=== PATIENT | male | born 1970 | race Caucasian/White ===

== ENCOUNTER → 2020-03-13 16:20 | Outpatient (CLI) | payer MEDICAID, SELFPAY ==
[2020-03-13 16:32] LABS: Basophils # 0.1 K/mm3 (0-0.2); Eosinophils # 0.3 K/mm3 (0.0-0.4); Eosinophils % 2.9 % (0.1-12.0); Hematocrit 37.8 % (42.0-52.0); Hemoglobin 12.9 g/dL (14.1-18.0); Lymphocytes # 2.4 K/mm3 (0.7-4.5); Lymphocytes % 28.8 % (10-50); Mean Corpuscular HGB Conc 34.1 g/dL (31.8-35.4); Mean Corpuscular Hemoglobin 33.4 pg (27.0-31.2); Mean Corpuscular Volume 97.9 fl (80-94); Mean Platelet Volume 9.2 fl (7.4-10.4); Monocytes # 0.4 K/mm3 (0.1-1.0); Monocytes % 4.1 % (1.7-9.3); Neutrophils # 5.4 K/mm3 (1.8-7.8); Neutrophils % 63.2 % (37.0-80.0); Platelet Count 203 K/mm3 (142-424); Red Blood Count 3.86 M/mm3 (4.60-6.20); Red Cell Distribution Width 14.7 % (11.5-17.5); White Blood Count 8.5 K/mm3 (4.8-10.8)
[2020-03-13 16:40] LABS: Chloride 101 mmol/L (98-107); Sodium 139 mmol/L (136-145)
[2020-03-13 16:41] LABS: Potassium 4.8 mmoL/L (3.5-5.1)
[2020-03-13 16:43] LABS: Alanine Aminotransferase 59 U/L (12-78); Albumin Level 4.6 g/dl (3.5-5.0); Albumin/Globulin Ratio 1.2 (1.1-1.8); Alkaline Phosphatase 71 U/L (38-126); Anion Gap 14.8 mEq/L (5-15); Aspartate Amino Transferase 177 U/L (17-59); Bilirubin,Total 0.6 mg/dl (0.2-1.3); Blood Urea Nitrogen 21 mg/dl (9-20); Carbon Dioxide 28 mmol/L (22.0-30.0); Cholesterol 272 mg/dl (140-200); Estimated Glomerular Filt Rate 40 ml/min (>60); GFR (African American) 49 ML/MIN (>60); Globulin 3.8 g/dL (1.3-3.2); Total Protein,Serum 8.4 g/dl (6.3-8.2); Triglycerides 345 mg/dl (30-150); VLDL Cholesterol 69 mg/dL (0-40)
[2020-03-13 16:44] LABS: Calcium 10.2 mg/dl (8.4-10.2); Chol/HDL Ratio 7.2 (1-3.5); Glucose 96 mg/dl (74-100); HDL Cholesterol 38 mg/dl (40-60)
[2020-03-13 16:55] LABS: Direct LDL Cholesterol 174.48 mg/dL (100-129)
[2020-03-13 17:01] LABS: 25-OH Vitamin D, Total 30.6 ng/mL (30-100)
[2020-03-13 17:02] LABS: Free T4 (Free Thyroxine) < 0.07 ng/dl (0.78-2.19)
== END ==
PROVIDERS: Visit Provider Emergency Medicine
DX: J44.9 Chronic obstructive pulmonary disease, unspecified (principal); E55.9 Vitamin D deficiency, unspecified
CPT/HCPCS: 80053; 80061; 82306; 84439; 84443; 85025

== ENCOUNTER 2020-03-26 09:13 | Outpatient (RCR) | payer MEDICAID, SELFPAY ==
--- NOTE | 2020-03-26 10:36 | HMH.PTOPEV ---
PT Outpatient Evaluation Rehab PT Outpatient Evaluation Start: 03/26/20 10:17 Freq: Status: Active Protocol: Document 03/26/20 10:23 PRASANTH (Rec: 03/26/20 10:36 PHORBARBIE [id number]) Electronically Signed By Addy Chilel, PT 03/26/20 10:23 Outpatient Therapy Subjective History Subjective History Pt is 50 yowm who presents with c/o sudden onset balance and gait disturbance beginning ~ 2-3 mos ago. Pt is somewhat of a poor historian and may have some form of underlying mental delay. He reports recently quitting smoking ~ 1- 2 wks ago with hx of COPD. He reports no other significant PMH, but other records indicate past substance abuse, decreased kidney function, peripheral neuropathy, and likely PAD with claudication. He states, My hands and arms and legs just draw up sometimes and I don't know why . Chief Complaint Other,Decreased Coordination Symptoms Relieved By Rest/Positioning Symptoms Aggravated By Walking Prior Functional Limitations None Current Functional Limitations Standing,Recreation Activity, Walking,Balance Symptom Description Activity Dependent Balance Eval Gait/Posture Asssessment General Gait Observation Wide Based Gait,Ataxic Gait Assistive Devices Straight Cane Level of Transfer Assist Independent Body Alignment Posture Rigid Rhomberg Feet Together/Eyes open/Stable Surface pass Feet Together/Eyes Closed/Stable Surface fail Feet Together/Eyes open/Unstable Surface fail Feet Together/Eyes Closed/Unstable fail Surface Dynamic Gait Index Test Protocol Gait Level Surface Mild Impairment Query Text: Instructions: Walk at your normal speed from here to the next kirsten (20'). Grading: Kirsten the lowest category that applies. Change in Gait Speed Mild Impairment Query Text: Instructions: Begin walking at your normal pace (for 5'), when I tell you go , walk as fast as you can (for 5'). When I tell you slow , walk as slowly as you can (for 5'). Grading: Kirsten the lowest category that applies. Gait with Horizontal Head Turns Moderate Impairment Query Text: Instructions: Begin walking
== END 2020-03-26 09:15 | disposition home or self-care (01) ==
LOC: PT 09:13
PROVIDERS: Visit Provider Emergency Medicine
DX: R26.9 Unspecified abnormalities of gait and mobility (principal)
CPT/HCPCS: 97163

== ENCOUNTER → 2020-04-01 14:37 | Outpatient (CLI) | payer MEDICAID, SELFPAY ==
[2020-04-01 15:10] VITALS: PULSE 80; PULSE 85
== END ==
PROVIDERS: PCP Emergency Medicine; Visit Provider Internal Medicine Pulmonary Disease
DX: R06.00 Dyspnea, unspecified (principal)
CPT/HCPCS: 94060; 94618; 94640; 94727; 94729

== ENCOUNTER → 2020-04-05 14:06 | Outpatient (CLI) | payer MEDICAID, SELFPAY ==
--- NOTE | 2020-04-05 14:22 | XR_ITS ---
PROCEDURE: XR CHEST 2V CLINICAL HISTORY: COPD COMPARISON: CR CXR1 CHEST-PORTABLE from 02/15/2016 FINDINGS: The cardiomediastinal silhouette and pulmonary vascularity are within normal limits. There is calcified granuloma in the left lower lobe. There is hyperinflation consistent with COPD. Minimal nodularity noted in the left lung base nonspecific. Stability may be confirmed with follow-up. No lobar consolidation or collapse. No acute bony findings. IMPRESSION: COPD, no acute finding. There is some nodularity noted in the left lung base possibly due to overlapping vascularity. Stability may be confirmed with follow-up Dictated by: Ed Fuentes MD 04/05/2020 16:38 Ed Fuentes MD in [place] 04/05/2020 16:38
[2020-04-05 14:49] LABS: Chloride 102 mmol/L (98-107)
[2020-04-05 14:50] LABS: Potassium 4.8 mmoL/L (3.5-5.1); Sodium 140 mmol/L (136-145)
[2020-04-05 14:52] LABS: Alanine Aminotransferase 33 U/L (12-78); Alkaline Phosphatase 68 U/L (38-126); Anion Gap 15.8 mEq/L (5-15); Aspartate Amino Transferase 72 U/L (17-59); Bilirubin,Total 0.6 mg/dl (0.2-1.3); Blood Urea Nitrogen 31 mg/dl (9-20); Carbon Dioxide 27 mmol/L (22.0-30.0); Estimated Glomerular Filt Rate 36 ml/min (>60); GFR (African American) 43 ML/MIN (>60)
[2020-04-05 14:53] LABS: Albumin Level 4.9 g/dl (3.5-5.0); Albumin/Globulin Ratio 1.1 (1.1-1.8); Calcium 10.1 mg/dl (8.4-10.2); Globulin 4.4 g/dL (1.3-3.2); Glucose 97 mg/dl (74-100); Total Protein,Serum 9.3 g/dl (6.3-8.2)
[2020-04-05 14:57] LABS: Hemoglobin A1C 5.2 % (4.0-6.0)
[2020-04-05 15:10] LABS: T4 (Thyroxine) 7.2 ug/dl (5.53-11.0)
[2020-04-05 16:57] LABS: Vitamin B12 456 pg/mL (239-931)
[2020-04-08 16:11] LABS: Albumin 4.4 g/dL (2.9-4.4); Alpha-1-Globulin 0.2 g/dL (0.0-0.4); Alpha-2-Globulin 1.2 g/dL (0.4-1.0); Protein, Total 8.7 g/dL (6.0-8.5)
[2020-04-11 11:11] LABS: Zinc 113 ug/dL (56-134)
[2020-04-17 13:48] LABS: AChR Binding Abs 0.07 nmol/L (0.00-0.24); AChR Blocking Abs 21 % (0-25); AChR Modulating Ab <12 % (0-20); Anti-Striation (muscle) Abs Negative (Neg:<1:40)
== END ==
PROVIDERS: Specialist; Visit Provider Emergency Medicine
DX: R42 Dizziness and giddiness (principal); E03.9 Hypothyroidism, unspecified; R74.0 Nonspecific elevation of levels of transaminase and lactic acid dehydrogenase [LDH]; G60.8 Other hereditary and idiopathic neuropathies; H51.20 Internuclear ophthalmoplegia, unspecified eye; R26.0 Ataxic gait; R26.9 Unspecified abnormalities of gait and mobility; R47.1 Dysarthria and anarthria; J44.9 Chronic obstructive pulmonary disease, unspecified; Z79.899 Other long term (current) drug therapy
CPT/HCPCS: 36415; 71046; 80053; 82525; 82607; 82746; 83036; 84155; 84165; 84238; 84436; 84443; 84630; 86255; 86334

== ENCOUNTER → 2020-04-08 10:32 | Outpatient (CLI) | payer MEDICAID, SELFPAY ==
--- NOTE | 2020-04-08 10:34 | CA_ITS ---
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 Laterality: Bilateral Study Quality: Good Indications: eval for peripheral vascular disease Risk Factors Smoking Doppler Spectral Velocity Analysis ECA (R) 52.00/10.00 cm/s ECA (L) 66.80/10.70 cm/s dICA (R) 61.50/31.00 cm/s dICA (L) 83.40/41.70 cm/s Ciaran (R) 65.20/33.10 cm/s Ciaran (L) 86.60/40.60 cm/s pICA (R) 65.20/26.70 cm/s pICA (L) 62.00/26.20 cm/s dCCA (R) 72.60/22.40 cm/s dCCA (L) 62.40/18.80 cm/s pCCA (R) 95.80/24.70 cm/s pCCA (L) 98.00/29.20 cm/s Vert (R) 24.40/10.30 cm/s Vert (L) 39.00/17.10 cm/s ICA/CCA 0.90 ICA/CCA 1.40 Findings Duplex evaluation demonstrates stenosis of the right proximal internal carotid artery <20%. Duplex evaluation demonstrates stenosis of the left proximal internal carotid artery <20%. Duplex evaluation demonstrates antegrade flow of the bilateral Vertebral Arteries. Conclusion Duplex evaluation demonstrates stenosis of the right proximal internal carotid artery <20%. Duplex evaluation demonstrates stenosis of the left proximal internal carotid artery <20%. Duplex evaluation demonstrates antegrade flow of the bilateral Vertebral Arteries. Electronically signed by : Ed Fuentes MD 04/09/2020 09:02:25
--- NOTE | 2020-04-08 10:40 | MR_ITS ---
PROCEDURE: MR HEAD/BRAIN WO CON CLINICAL INDICATION: vertigo Dizziness and blurred vision COMPARISON: No exams were available for comparison TECHNIQUE: Routine multiplanar multi echo sequences are performed without gadolinium enhancement. FINDINGS: No midline shift, mass effect, intracranial hemorrhage, or hydrocephalus is evident. There is mild generalized atrophy. Unremarkable T2 white matter signal intensity. There is mild prominence of the pre pontine CSF space which is symmetric. Asymmetric prominent CSF signal intensity is present in the right CP angle suggesting right-sided arachnoid cyst. This area of asymmetric CSF collection measures 2.2 by 1.6 cm. The 7th and 8th nerve complex has an unremarkable appearance No acute infarction. The hippocampal gyri and temporal horns are symmetric. The pituitary, optic chiasm, corpus callosum, and upper cervical cord have an unremarkable appearance. There is fluid in the left mastoid sinus. No paranasal sinus air-fluid levels evident. IMPRESSION: 1. Asymmetric CSF collection in the right CP angle suggesting an arachnoid cyst at 2.2 x 1.6 cm. Suggests confirmation with dedicated MRI of the CP angle without and with gadolinium enhancement in this patient with dizziness 2. Left mastoid effusion. 3. Otherwise negative MRI of the brain without contrast. Dictated by: Ed Fuentes MD 04/08/2020 15:41 Ed Fuentes MD in [place] 04/08/2020 15:41
== END ==
PROVIDERS: PCP Emergency Medicine; Visit Provider Specialist
DX: R42 Dizziness and giddiness (principal); R26.0 Ataxic gait; R26.9 Unspecified abnormalities of gait and mobility; G60.8 Other hereditary and idiopathic neuropathies; H51.20 Internuclear ophthalmoplegia, unspecified eye; R47.1 Dysarthria and anarthria; Z86.69 Personal history of other diseases of the nervous system and sense organs
CPT/HCPCS: 70551; 93880

== ENCOUNTER → 2020-04-26 10:56 | Outpatient (CLI) | payer MEDICAID, SELFPAY ==
--- NOTE | 2020-04-26 10:57 | MR_ITS ---
PROCEDURE: MR HEAD/BRAIN WO/W CON CLINICAL INDICATION: Evaluate CP angle mass on the right. Dizziness, follow-up abnormal brain MRI abnormal brain MRI without contrast Hx abnormal mri brain done 04/08/20. Questioned 1. Asymmetric CSF collection in the right CP angle suggesting an arachnoid cyst at 2.2 x 1.6 cm. Suggests confirmation with dedicated MRI of the CP angle without and with gadolinium enhancement in this patient with dizziness COMPARISON: MR MR HEAD/BRAIN WO CON from 04/08/2020 TECHNIQUE: Routine multiplanar multi echo sequences are performed without and with gadolinium enhancement. FINDINGS: No midline shift intracranial hemorrhage or acute infarction is evident. There is once again noted asymmetric CSF collection in the right CP angle. This does not demonstrate contrast enhancement. This area measures approximately 2 by 1.7 cm consistent with a arachnoid cyst. This is caudad to the 7th and 8th nerve complex. This is displacing some small vessels at the skull base. No enhancing lesions are evident. Small amount fluid is present in the left mastoid sinus. No other significant anomalies are evident. IMPRESSION: Right CP angle arachnoid cyst. Dictated by: Ed Fuentes MD 04/29/2020 10:14 Ed Fuentes MD in [place] 04/29/2020 10:14
== END ==
PROVIDERS: PCP Emergency Medicine; Visit Provider Specialist
DX: R90.89 Other abnormal findings on diagnostic imaging of central nervous system (principal); R42 Dizziness and giddiness; R26.9 Unspecified abnormalities of gait and mobility; N28.9 Disorder of kidney and ureter, unspecified
CPT/HCPCS: 70553; A9576

== ENCOUNTER 2020-05-11 17:00 | Inpatient (IN) | payer MEDICAID, SELFPAY ==
[2020-05-11] VITALS (13 sets, daily range): BP systolic 105–131; BP diastolic 57–79; PULSE 72–87; RESP 14–22; TEMP 35.4–36.5; O2SAT 92–99; BMI 20.9; BMI 21.1
[2020-05-11 17:43] LABS: Appearance,Urine SL CLOUDY (Clear); Bilirubin,Urine Negative (Negative); Blood, Urine TRACE-L (Negative); Color,Urine YELLOW (Yellow); Glucose,Urine (UA) Negative (Negative); Ketones,Urine Negative (Negative); Leukocyte Esterase,Urine 1+ (Negative); Microscopic, Urine URINE MICROSCOPIC (MICROSCOPIC); Nitrate,Urine POSITIVE (Negative); Protein,Urine TRACE (Negative); Specific Gravity, Urine >= 1.030 (1.005-1.030); Urobilinogen,Urine 0.2 EU/dl (0.2)
--- NOTE | 2020-05-11 17:44 | HMH.EDABDPAI ---
ED Disposition Clinical Impression: Hypercapnic respiratory failure Qualifiers: Chronicity: acute Qualified Code(s): J96.02 - Acute respiratory failure with hypercapnia UTI (urinary tract infection) Qualifiers: Urinary tract infection type: acute cystitis Hematuria presence: with hematuria Qualified Code(s): N30.01 - Acute cystitis with hematuria Disposition: Admitted As Inpatient Condition on Discharge: Serious Instructions: DI for Acute Abdomen Additional Instructions: Given hypercarbic respiratory failure with uncompensated acidosis patient has been initiated on BiPAP at 14/6 30% FiO2 and a backup rate of 20. No significant hypoxia minimal oxygen support. Patient has been dosed with IV corticosteroids. Urinary tract infection noted on UA with positive nitrates. Patient has been dosed with ertapenem. No signs of SIRS/sepsis. As such patient be admitted for further respiratory care with bronchodilators and will repeat VBG in a.m. to determine weaning. Referrals: Dexter Ryan MD [Primary Care Provider] - - Critical Care Critical Care Time: No Attestation: On 05/11/20, the high probability of a clinically significant, sudden or life threatening deterioration of the following system(s) required my full and direct attention, intervention and personal management. The time I documented below is in addition to time spent performing reported procedures but includes the following listed in this critical care notation. Medical Decision Making - Medical Records Medical records reviewed: Yes: I reviewed the patient's medical records. - [place] Inquiry Pt receiving controlled substance: No Vital Signs: 05/11/20 17:01 05/11/20 17:49 05/11/20 18:11 Temperature 95.8 F L Temperature Source Rectal Pulse Rate [Radial] 77 72 76 Respiratory Rate 18 16 18 Blood Pressure [Right Arm] 117/74 106/74 L 106/67 L Blood Pressure Mean [Right Arm] 88 84 80 Blood Pressure Source [Right Arm] Automatic Cuff Automatic Cuff Blood Pressure Position [Right Arm] Sitting Sitting Sitting 02 Sat by Pulse Oximetry 98 96 97 Oxygen Delivery Method Room Air Room Air Room Air 05/11/20 18:30 05/11/20 19:00 Temperature Temperature Source Pulse Rate [Radial] 80 73 Respiratory Rate 16 16 Blood Pressure [Right Arm] 105/57 L 106/66 L Blood Pressure Mean [Right Arm] 73 79 Blood Pressure Source [Right Arm] Automatic Cuff Automatic Cuff Blood Pressure Position [Right Arm] Sitting Sitting 02 Sat by Pulse Oximetry 92 L 96 Oxygen Delivery Method Room Air Room Air - Lab Data Lab results reviewed: Yes: I reviewed the patient's lab results. Lab Results 05/11/20 17:20: WBC 13.0 H, RBC 4.86, Hgb 15.5, Hct 47.8, MCV 98.3 H, MCH 31.9 H, MCHC 32.5, RDW 13.1, Plt Count 289, MPV 7.7, Neut % (Auto) 85.2 H, Lymph % (Auto) 8.3 L, [place] % (Auto) 5.7, Eos % (Auto) 0.3, Baso % (Auto) 0.5, Neut # (Auto) 11.0 H, Lymph # (Auto) 1.1, [place] # (Auto) 0.7, Eos # (Auto) 0.0, Baso # (Auto) 0.1, Total Counted 100, Neutrophils % (Manual) 90 H, Lymphocytes % (Manual) 5 L, Monocytes % (Manual) 5, Platelet Estimate Normal, RBC Morphology Normal 05/11/20 17:20: Sodium 141, Potassium 5.5 H, Chloride 101, Carbon Dioxide 30, Anion Gap 15.5 H, BUN 20, Creatinine 1.20, Estimated Creat Clear 71, Estimated GFR 64, Est GFR ( Amer) 78, Glucose 126 H, Calcium 10.0, Total Bilirubin 0.4, AST 34, ALT 23, Alkaline Phosphatase 124, Total Protein 8.8 H, Albumin 4.8, Globulin 4.0 H, Albumin/Globulin Ratio 1.2, Lipase 74 05/11/20 17:20: Lactate 2.0 05/11/20 17:20: Acetone Level None detected 05/11/20 17:20: Procalcitonin 0.192 05/11/20 17:20: SARS-CoV-2 IgG Ab (Rapid) Positive A, SARS-CoV-2 IgM Ab (Rapid) Negative 05/11/20 17:30: Urine Opiates Screen Negative, Urine Methadone Screen Negative, Ur Barbituates Screen Negative, Ur Phencyclidine Scrn Negative, Ur Amphetamines Screen Positive H, U Benzodiazepines Scrn Negative, Urine Cocaine Screen Negative, U Marijuana (THC) Screen Negative 05/11
[2020-05-11 17:47] LABS: Basophils # 0.1 K/mm3 (0-0.2); Basophils % 0.5 % (0.1-2.0); Eosinophils % 0.3 % (0.1-12.0); Hematocrit 47.8 % (42.0-52.0); Hemoglobin 15.5 g/dL (14.1-18.0); Lymphocytes # 1.1 K/mm3 (0.7-4.5); Lymphocytes % 8.3 % (10-50); Mean Corpuscular HGB Conc 32.5 g/dL (31.8-35.4); Mean Corpuscular Hemoglobin 31.9 pg (27.0-31.2); Mean Corpuscular Volume 98.3 fl (80-94); Mean Platelet Volume 7.7 fl (7.4-10.4); Monocytes # 0.7 K/mm3 (0.1-1.0); Monocytes % 5.7 % (1.7-9.3); Neutrophils % 85.2 % (37.0-80.0); Platelet Count 289 K/mm3 (142-424); Red Blood Count 4.86 M/mm3 (4.60-6.20); Red Cell Distribution Width 13.1 % (11.5-17.5)
[2020-05-11 17:49] LABS: MANUAL DIFFERENTIAL MANUAL DIFFERENTIAL (MANUAL DIFF)
[2020-05-11 17:50] LABS: VBG Base Excess -0.2 mmol/L (-2.4-2.3); VBG HCO3 28.5 mmol/L (23-30); VBG Oxygen Saturation 76.2 % (50-70); VBG PCO2 82.5 mmol/L (35-51); VBG PO2 48.7 mmol/L (28-40); VBG Total CO2 31.1 mmol/L (23-27)
[2020-05-11 17:51] LABS: VBG PH 7.16 mmol/L (7.31-7.41)
[2020-05-11 17:51] LABS: Acetone, Serum (Rapid) None Detected (None Detect)
[2020-05-11 17:53] LABS: Alanine Aminotransferase 23 U/L (12-78); Albumin Level 4.8 g/dl (3.5-5.0); Albumin/Globulin Ratio 1.2 (1.1-1.8); Alkaline Phosphatase 124 U/L (38-126); Anion Gap 15.5 mEq/L (5-15); Aspartate Amino Transferase 34 U/L (17-59); Bilirubin,Total 0.4 mg/dl (0.2-1.3); Blood Urea Nitrogen 20 mg/dl (9-20); Carbon Dioxide 30 mmol/L (22.0-30.0); Chloride 101 mmol/L (98-107); Creatinine Clearance Estimated 71 mL/min (50-200); Estimated Glomerular Filt Rate 64 ml/min (>60); GFR (African American) 78 ML/MIN (>60); Glucose 126 mg/dl (74-100); Lipase 74 U/L (23-300); Potassium 5.5 mmoL/L (3.5-5.1); Sodium 141 mmol/L (136-145); Total Protein,Serum 8.8 g/dl (6.3-8.2)
[2020-05-11 17:54] LABS: Bacteria,Urine 3+ /lpf; RBC,Urine Occasional #/hpf (0-3)
[2020-05-11 17:55] LABS: Barbiturates Screen,Urine Negative ng/ml (<200)
[2020-05-11 17:56] LABS: Amphetamine/Metha Screen,Urine Positive ng/ml (<1000); Benzodiazepines Screen,Urine Negative ng/ml (<200)
[2020-05-11 17:58] LABS: Cannabinoid Screen,Urine Negative ng/ml (<50); Cocaine Screen,Urine Negative ng/ml (<300)
[2020-05-11 17:59] LABS: Opiate Screen,Urine Negative ng/ml (<300)
[2020-05-11 18:00] LABS: Phencyclidine Screen,Urine Negative ng/ml (<25)
[2020-05-11 18:01] LABS: Lymphocytes % 5 % (10-50); Monocytes % 5 % (2-9); Neutrophils % 90 % (42-76); Platelet Estimate Normal; RBC Morphology Normal; Total Cells Counted 100
[2020-05-11 18:05] LABS: Methadone Screen,Urine Negative ng/ml (<300)
--- NOTE | 2020-05-11 18:05 | XR_ITS ---
PROCEDURE: XR CHEST PORTABLE Referring Doctor: Dexter London Patient Age:50Y CLINICAL HISTORY: Chest PAIN. Chest pain COPD Covid antibody detected COMPARISON: CR CXR1 CHEST-PORTABLE from 02/15/2016 CR XR CHEST 2V from 04/05/2020 FINDINGS: AP portable supine CXR was performed today The lungs appear mildly hyperexpanded but clear with nothing definitely acute.-no significant new findings stable chest No focal infiltrate or pneumonia. No pneumothorax nor pleural effusion.. The heart is normal size with normal pulmonary vascularity. 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 Chest wall unremarkable. Lungs without infiltrates, suspicious nodules, or pleural effusions. No acute bony abnormalities. IMPRESSION: Lungs clear with nothing definitely acute. Stable chest with no active disease Dictated by: Azael Ferrer MD 05/12/2020 18:52 Azael Ferrer MD in [place] 05/12/2020 18:52
--- NOTE | 2020-05-11 18:05 | CT_ITS ---
Procedure: CT ABDOMEN PELVIS WO CON Referring Doctor: Dexter London Patient Age:50Y CLINICAL INDICATION: ABD PAIN with nausea and vomiting Previous bladder surgery COMPARISON: No exams were available for comparison TECHNIQUE: No oral nor IV contrast. No Helical axial images obtained with sagittal and coronal reformats. All CT scans at the facility use one or more dose reduction, viz: automated exposure control, ma/kV adjustment per patient size (including targeted exams where dose is matched to indication, i.e. head), or iterative reconstruction technique. FINDINGS: Lower thorax: No acute finding ABDOMEN: Liver: No masses or biliary dilatation. Gallbladder: Nondistended. No radio opaque stones. Pancreas: No masses or peripancreatic fluid collections. Spleen: unremarkable Adrenals: unremarkable --- tract Kidneys/ureters: Multiple simple right renal cyst largest measuring up to 4.3 cm diameter Minor perinephric stranding most likely reflecting mild chronic changes PELVIS:. Urinary bladder: Circumferential bladder wall thickening.. . Mildly enlarged prostate measuring to 4.7 cm diameter with central calcification. . Left seminal vesicle is prominent than the right. Very nonspecific observation but may benefit correlation with PSA and prostate exam in follow-up GI tract Small slight hiatal hernia noted Stomach otherwise unremarkable. The moderate contents. . Small bowel appears satisfactory. No dilatation or evident wall thickening. Appendix is well visualized and normal. Large bowel-minimal stool throughout Small umbilical hernia contains only fat, no bowel loops. There is some minor stranding in the fat but no prominent inflammation. Small right inguinal contains only fat but no inflammation. No bowel loops. Peritoneum: No abnormal fluid collections. No obvious inflammatory changes. No free air. Lymph nodes: No enlarged lymph nodes apparent. Vasculature: No evidence of abdominal aortic aneurysm. No retroperitoneal hemorrhage evident. Bones: No acute fracture degenerative disc changes L5/S1 IMPRESSION: 1..Diffuse circumferential wall thickening of urinary bladder Warrants correlation with urinalysis. Could reflect a cystitis along with bladder wall hypertrophy changes Mild enlarged prostate & mild asymmetric prominence of left seminal vesicle noted-Nonspecific 2..Small fat containing right inguinal hernia. Small fat containing umbilical hernia. Small sliding hiatal hernia 3.. Simple benign-appearing right renal cysts. No additional imaging required. Dictated by: Azael Ferrer MD 05/12/2020 13:46 Azael Ferrer MD in [place] 05/12/2020 13:46
[2020-05-11 18:10] LABS: Procalcitonin 0.192 ng/mL (0.0-2.0)
--- NOTE | 2020-05-11 18:21 | ECG_ITS ---
APPROVED REPORT Exam: Resting ECG HR:82 bpm ECG Measurements Heart Rate 82 AXES QRSd 88 QRS 82 QT 400 T 58 QTc 467 Conclusion Accelerated Junctional rhythm Abnormal ECG Electronically signed by : Freeman Wei, 05/12/2020 08:44:28
[2020-05-11 18:27] LABS: Coronavirus 19 IgG Antibody Positive (Negative); Coronavirus 19 IgM Antibody Negative (Negative)
--- NOTE | 2020-05-11 19:29 | HMH.HP ---
*Admission Date: 05/11/20 *Chief complaint: nausea *History of present illness: 50-year-old male that presents with nausea and vomiting and epigastric pain that started last pm. Pt states Vomitus described as yellow bilious and numbering approximately 10 x today. Patient states pain is sharp and rated at 7 out of 10. Patient states No diarrhea, fever, chills,hematemesis. No known sick contacts. Patient while in ed was placed on bipap. Patient admitted for UTI and resp distress. [facility] History I have reviewed the patient's past medical history: Yes Medical History: Reports:: Asthma, Chronic Obstructive Pulmonary Disease (COPD), Depression *Have you ever received a pneumonia vaccine?: Yes *Have you received a flu vaccine this season?: Yes Other Medical History: Reports: Cataracts, Hypothyroidism, Thyroid Disease Other Surgeries: Yes: Hernia Repair, Ureter Stent Amputation: No Fractures: No - *Social History Smoking Status: Current every day smoker Tobacco Type: cigarettes # Packs/Day (cigarettes): 1 Alcohol Intake: never Alcohol Intake Frequency:: other Substance Use Type: denies use *Occupational Status:: disabled Housing: apartment Household Members: none *Travel in the last 8 weeks: None - Psychiatric History Pschychiatric History:: Reports:: Depression Family Hx:: Mental illness, Diabetes, Heart Attack, Hypertension, Kidney Disease Review of Systems - Constitutional Reports body ache(s), Reports fatigue, Denies fever(s) - Eyes Denies change in vision - ENT Denies bleeding gums, Denies sinus pressure - *Cardiovascular Denies chest pain at rest, Denies shortness of breath - *Respiratory Reports cough - *Gastrointestinal Reports nausea, Reports vomiting, Denies loose stools - *Genitourinary Denies difficulty urinating, Denies urinary frequency - *Musculoskeletal Reports muscle weakness, Denies abnormal walking - Integumentary/Breasts Denies rash - *Neurologic Denies dizziness - Psychiatric Denies abnormal sleep pattern - Endocrine Denies flushing - Hematologic/Lymphatic Denies enlarged lymph nodes - Allergic/Immunologic Denies itchy eyes Meds Home Medications Medication Instructions Recorded Confirmed Type Proventil HFA 90 mcg/actuation 2 puff INHALATION TID PRN #6.7 g NS 03/15/20 05/11/20 Rx aerosol inhaler albuterol sulfate 90 mcg/actuation 1 inh INHALATION QID PRN #6.7 g 04/12/20 05/11/20 Rx aerosol inhaler Escitalopram Oxalate 10 mg PO DAILY 04/29/20 05/11/20 History Fluticasone Propion/Salmeterol 1 inh INHALATION BID 04/29/20 05/11/20 History [Fluticasone-Salmeterol 100-50] Levothyroxine Sodium 200 mcg PO DAILY 04/29/20 05/11/20 History [Levothyroxine 200mcg (0.2mg) Tab] Nicotine [Nicoderm CQ] 1 patch TRANSDERMA DAILY 04/29/20 05/11/20 History Allergies Allergy/AdvReac Type Severity Reaction Status Date / Time hydroxyzine Allergy Severe S-DIFF. Verified 04/29/20 10:03 BREATHING iopamidol Allergy Unknown IV Verified 04/29/20 10:03 DYE-GETS SICK Exam Vital signs and Labs for Last 24 Hours: Temp Pulse Resp BP Pulse Ox 95.8 F L 74 16 127/76 99 05/11/20 17:01 05/11/20 19:14 05/11/20 19:14 05/11/20 19:14 05/11/20 19:14 Laboratory Results - last 24 hr 05/11/20 17:20: WBC 13.0 H, RBC 4.86, Hgb 15.5, Hct 47.8, MCV 98.3 H, MCH 31.9 H, MCHC 32.5, RDW 13.1, Plt Count 289, MPV 7.7, Neut % (Auto) 85.2 H, Lymph % (Auto) 8.3 L, [place] % (Auto) 5.7, Eos % (Auto) 0.3, Baso % (Auto) 0.5, Neut # (Auto) 11.0 H, Lymph # (Auto) 1.1, [place] # (Auto) 0.7, Eos # (Auto) 0.0, Baso # (Auto) 0.1, Total Counted 100, Neutrophils % (Manual) 90 H, Lymphocytes % (Manual) 5 L, Monocytes % (Manual) 5, Platelet Estimate Normal, RBC Morphology Normal 05/11/20 17:20: Sodium 141, Potassium 5.5 H, Chloride 101, Carbon Dioxide 30, Anion Gap 15.5 H, BUN 20, Creatinine 1.20, Estimated Creat Clear 71, Estimated GFR 64, Est GFR ( Amer) 78, Glucose 126 H, Calcium
--- NOTE | 2020-05-11 20:14 | PC.NURSE ---
PT ARRIVED TO THE FLOOR VIA STRETCHER FROM ED W/STAFF AT 2015
[2020-05-12] VITALS (13 sets, daily range): BP systolic 103–127; BP diastolic 63–84; PULSE 59–74; RESP 16–24; TEMP 36.3–37.1; O2SAT 94–98; BMI 21.6
--- NOTE | 2020-05-12 05:14 | PC.NURSE ---
Pt is alert and oriented x4. Pt rested well with eyes closed majority of shift. Tolerated Bipap well with no complaints. RA sat noted 98%. No c/o SOA. Bilateral lungs noted clear t/o upon auscultation. Active bowel sounds noted in all 4 quads. Remains NPO this shift. No c/o N/V/D. No c/o abdominal pain when asked. No edema noted. FC in place, 12 F coude. 50 ml out upon insertion. Pt states he does self caths at home Q4H. Urine output noted < 200 cc this sift. Denies abdominal discomfort with palpation. No distention noted. VSS. Remains safe. Call light within reach. Will continue to monitor. Spoke with family member at beginning of shift. She stated pt does have a hx of drug abuse with meth and ice. Most recent use was about 3 months ago that she is aware of.
[2020-05-12 07:19] LABS: Chloride 104 mmol/L (98-107); Potassium 5.7 mmoL/L (3.5-5.1); Sodium 139 mmol/L (136-145)
[2020-05-12 07:20] LABS: Basophils % 0.1 % (0.1-2.0); Eosinophils % 0.2 % (0.1-12.0); Hematocrit 41.6 % (42.0-52.0); Lymphocytes # 0.7 K/mm3 (0.7-4.5); Lymphocytes % 10.6 % (10-50); Mean Corpuscular HGB Conc 33.1 g/dL (31.8-35.4); Mean Corpuscular Hemoglobin 31.6 pg (27.0-31.2); Mean Corpuscular Volume 95.4 fl (80-94); Mean Platelet Volume 7.8 fl (7.4-10.4); Monocytes # 0.2 K/mm3 (0.1-1.0); Monocytes % 2.7 % (1.7-9.3); Neutrophils # 5.8 K/mm3 (1.8-7.8); Neutrophils % 86.4 % (37.0-80.0); Platelet Count 255 K/mm3 (142-424); Red Blood Count 4.36 M/mm3 (4.60-6.20); Red Cell Distribution Width 12.8 % (11.5-17.5); White Blood Count 6.7 K/mm3 (4.8-10.8)
[2020-05-12 07:21] LABS: Hemoglobin 13.7 g/dL (14.1-18.0)
[2020-05-12 07:22] LABS: Anion Gap 13.7 mEq/L (5-15); Blood Urea Nitrogen 26 mg/dl (9-20); Carbon Dioxide 27 mmol/L (22.0-30.0); Creatinine Clearance Estimated 67 mL/min (50-200); Estimated Glomerular Filt Rate 58 ml/min (>60); GFR (African American) 71 ML/MIN (>60); MANUAL DIFFERENTIAL MANUAL DIFFERENTIAL (MANUAL DIFF)
[2020-05-12 07:23] LABS: Glucose 112 mg/dl (74-100)
[2020-05-12 07:27] LABS: Lymphocytes % 5 % (10-50); Neutrophils % 92 % (42-76); Platelet Estimate Normal; RBC Morphology Normal; Total Cells Counted 100
[2020-05-12 07:28] LABS: Calcium 8.7 mg/dl (8.4-10.2)
--- NOTE | 2020-05-12 08:04 | HMH.PHAVTE ---
[facility] Pharmacy VTE Monitoring - Patient Demographics Admission date: 05/11/20 Report Date: 05/12/20 Time: 08:04 Allergies/Adverse Reactions: Patient Allergies hydroxyzine Allergy (Severe, Verified 04/29/20 10:03) S-DIFF. BREATHING iopamidol Allergy (Unknown, Verified 04/29/20 10:03) IV DYE-GETS SICK Height: 1.8 m Weight: 70.052 kg Patient Problems: Current Active Problems Hypercapnic respiratory failure (Acute) UTI (urinary tract infection) (Acute) COPD (chronic obstructive pulmonary disease) (Acute) - VTE Risk Labs: VTE Related Lab Results Hgb 13.7 g/dL (14.1-18.0) L D 05/12/20 06:53 Hct 41.6 % (42.0-52.0) L 05/12/20 06:53 Plt Count 255 K/mm3 (142-424) 05/12/20 06:53 BUN 26 mg/dl (9-20) H D 05/12/20 06:53 Creatinine 1.30 mg/dl (0.66-1.25) H 05/12/20 06:53 Estimated Creat Clear 67 mL/min (50-200) 05/12/20 06:53 Was VTE Risk Assessment Performed: Yes VTE Score: 3 VTE Risk Level: Low Risk - Prophylaxis VTE Prophylaxis Ordered?: Yes Types of VTE Prophylaxis: TEDS Knee High Location of Applied Device: Bilateral Lower Extremeties
--- NOTE | 2020-05-12 08:07 | HMH.PHAINT ---
MEDICATION RECONCILIATION COMPLETED ON PATIENT USING EXTERNAL FILL HISTORY FROM PHARMACY. -LAURITA LOPEZ, [facility]ICOD
--- NOTE | 2020-05-12 09:11 | HMH.ACPN2 ---
Internal Medicine - PN: Subj *Date: 05/13/20 *Time: 07:50 Interval history: doing better - more alert still on bpap Exam Vital signs and Labs for Last 24 Hours: Temp Pulse Resp BP Pulse Ox 97.7 F 62 24 121/80 98 05/12/20 04:00 05/12/20 06:29 05/12/20 04:00 05/12/20 04:00 05/12/20 04:00 Laboratory Results - last 24 hr 05/11/20 17:20: WBC 13.0 H, RBC 4.86, Hgb 15.5, Hct 47.8, MCV 98.3 H, MCH 31.9 H, MCHC 32.5, RDW 13.1, Plt Count 289, MPV 7.7, Neut % (Auto) 85.2 H, Lymph % (Auto) 8.3 L, [place] % (Auto) 5.7, Eos % (Auto) 0.3, Baso % (Auto) 0.5, Neut # (Auto) 11.0 H, Lymph # (Auto) 1.1, [place] # (Auto) 0.7, Eos # (Auto) 0.0, Baso # (Auto) 0.1, Total Counted 100, Neutrophils % (Manual) 90 H, Lymphocytes % (Manual) 5 L, Monocytes % (Manual) 5, Platelet Estimate Normal, RBC Morphology Normal 05/11/20 17:20: Sodium 141, Potassium 5.5 H, Chloride 101, Carbon Dioxide 30, Anion Gap 15.5 H, BUN 20, Creatinine 1.20, Estimated Creat Clear 71, Estimated GFR 64, Est GFR ( Amer) 78, Glucose 126 H, Calcium 10.0, Total Bilirubin 0.4, AST 34, ALT 23, Alkaline Phosphatase 124, Total Protein 8.8 H, Albumin 4.8, Globulin 4.0 H, Albumin/Globulin Ratio 1.2, Lipase 74 05/11/20 17:20: Lactate 2.0 05/11/20 17:20: Acetone Level None detected 05/11/20 17:20: Procalcitonin 0.192 05/11/20 17:20: SARS-CoV-2 IgG Ab (Rapid) Positive A, SARS-CoV-2 IgM Ab (Rapid) Negative 05/11/20 17:30: Urine Opiates Screen Negative, Urine Methadone Screen Negative, Ur Barbituates Screen Negative, Ur Phencyclidine Scrn Negative, Ur Amphetamines Screen Positive H, U Benzodiazepines Scrn Negative, Urine Cocaine Screen Negative, U Marijuana (THC) Screen Negative 05/11/20 17:30: Urine Color Yellow, Urine Appearance Sl cloudy, Urine pH 6.0, Ur Specific [place] >= 1.030, Urine Protein Trace, Urine Glucose (UA) Negative, Urine Ketones Negative, Urine Blood Trace-l, Urine Nitrate Positive, Urine Bilirubin Negative, Urine Urobilinogen 0.2, Ur Leukocyte Esterase 1+ A, Urine RBC Occasional, Urine WBC 10-20, Ur Squamous Epith Cells 10-20, Urine Bacteria 3+ 05/11/20 17:49: VBG pH 7.16 L, VBG pCO2 82.5 H, VBG pO2 48.7 H, VBG HCO3 28.5, VBG Total CO2 31.1 H, VBG O2 Saturation 76.2 H, VBG Base Excess -0.2 05/12/20 06:53: WBC 6.7 D, RBC 4.36 L, Hgb 13.7 L D, Hct 41.6 L, MCV 95.4 H, MCH 31.6 H, MCHC 33.1, RDW 12.8, Plt Count 255, MPV 7.8, Neut % (Auto) 86.4 H, Lymph % (Auto) 10.6, [place] % (Auto) 2.7, Eos % (Auto) 0.2, Baso % (Auto) 0.1, Neut # (Auto) 5.8, Lymph # (Auto) 0.7, [place] # (Auto) 0.2, Eos # (Auto) 0.0, Baso # (Auto) 0.0, Total Counted 100, Neutrophils % (Manual) 92 H, Band Neutrophils % 3.0, Lymphocytes % (Manual) 5 L, Platelet Estimate Normal, RBC Morphology Normal 05/12/20 06:53: Sodium 139, Potassium 5.7 H, Chloride 104, Carbon Dioxide 27, Anion Gap 13.7, BUN 26 H D, Creatinine 1.30 H, Estimated Creat Clear 67, Estimated GFR 58 L, Est GFR ( Amer) 71, Glucose 112 H, Calcium 8.7 D 05/12/20 08:32: Specimen Source Left radial, O2 % 21%, ABG pH 7.33 L, ABG pCO2 43.7, ABG pO2 67.6 L, ABG HCO3 22.5, ABG Total CO2 23.9, ABG O2 Saturation 93, ABG Base Excess -3.4 L, Ed Test Acceptable I & O for Last 24 hours: Intake & Output 05/09/20 05/10/20 05/11/20 05/12/20 11:59 11:59 11:59 11:59 Intake Total 2160 / 2160 Output Total 50 / 50 Balance 2109 / 2109 Weight 154 lb 7 oz Microbiology Reports for the Last 24 Hours: Microbiology 05/11/20 17:30 Urine,Catheterized Urine Culture - Preliminary - Constitutional no acute distress - *Routine HEENT Exam Head: Present: normocephalic Eye: Present: EOMI, PERRL ENT: Present: mucous membranes dry - *Routine Neck Exam Present: supple - *Routine Respiratory Exam Present: decreased breath sounds, other (bpap) - *Routine Cardiovascular Exam Present: RRR - *Routine Abdominal Exam Present: soft - *Routine Extremities Exam Absent: calf tenderness - *Routine Skin Exam Present: intact - *Routine Neurolog
--- NOTE | 2020-05-12 17:42 | PC.NURSE ---
PATIENT A&O4, LUNGS DIMINISHED, PULSES EQUAL, PATIENT HAS HAD NO EPISODES OF VOMITING, NAUSEA OR DIARRHEA. PATIENT ATE A CLEAR LIQUID DIET AND TOLERATED WELL. PATIENT IS NOW ON VAPOTHERM AND TOLERATING WELL. NO NEW ISSUES AT THIS TIME.
[2020-05-13] VITALS (14 sets, daily range): BP systolic 98–117; BP diastolic 52–65; PULSE 56–89; RESP 15–20; TEMP 36.5–37.6; O2SAT 90–97; BMI 21.2
--- NOTE | 2020-05-13 06:16 | PC.NURSE ---
Pt is alert and oriented x4. Pt rested well with eyes closed this shift. No acute changes noted from previous shift. Pt tolerated vapotherm on 20 L well with no c/o SOA. HOB remained elevated while lying in bed. Have encouraged pt to get OOB this am for breakfast. Bilateral lungs noted diminished t/o upon auscultation. No BM noted. Adequate urine output noted per FC. Clear and bright yellow urine noted. No edema noted. Denies N/V. Denies abd pain. VSS. Remains safe. Call light within reach. Will continue to monitor.
--- NOTE | 2020-05-13 08:55 | HMH.ACPN2 ---
Internal Medicine - PN: Subj *Date: 05/13/20 *Time: 08:55 Interval history: pt sitting up in chair with vapertherm, states he wants something else to eat Exam Vital signs and Labs for Last 24 Hours: Temp Pulse Resp BP Pulse Ox 97.7 F 58 L 16 108/60 L 95 05/13/20 03:58 05/13/20 06:06 05/13/20 03:58 05/13/20 03:58 05/13/20 06:06 Laboratory Results - last 24 hr 05/12/20 08:32: ABG pH 7.33 L, ABG pCO2 43.7, ABG pO2 67.6 L, ABG HCO3 22.5, ABG Total CO2 23.9, ABG O2 Saturation 93, ABG Base Excess -3.4 L I & O for Last 24 hours: Intake & Output 05/10/20 05/11/20 05/12/20 05/13/20 11:59 11:59 11:59 11:59 Intake Total 2160 / 2160 50 / 50 Output Total 50 / 50 2400 / 2400 Balance 2110 / 2110 -2350 / -2350 Weight 154 lb 7 oz 151 lb 7 oz Microbiology Reports for the Last 24 Hours: Microbiology 05/11/20 17:30 Urine,Catheterized Urine Culture - Preliminary - Constitutional no acute distress - *Routine HEENT Exam Head: Present: normocephalic Eye: Present: PERRL ENT: Present: mucous membranes moist - *Routine Neck Exam Present: supple. Absent: lymphadenopathy - *Routine Respiratory Exam Present: rhonchi, wheezes - *Routine Cardiovascular Exam Present: RRR - *Routine Abdominal Exam Present: soft, normoactive bowel sounds. Absent: tenderness - *Routine Extremities Exam Present: normal capillary refill. Absent: cyanosis, clubbing, edema - *Routine Skin Exam Present: warm. Absent: rash - *Routine Neurological Exam Present: alert, oriented X3 - Routine Psychiatric Exam Present: normal affect Assessment and Plan (1) Hypercapnic respiratory failure Status: Acute Qualifiers: Chronicity: acute Qualified Code(s): J96.02 - Acute respiratory failure with hypercapnia Category: Medical Code(s): J96.92 - Respiratory failure, unspecified with hypercapnia (2) UTI (urinary tract infection) Status: Acute Qualifiers: Urinary tract infection type: acute cystitis Hematuria presence: with hematuria Qualified Code(s): N30.01 - Acute cystitis with hematuria Category: Medical Code(s): N39.0 - Urinary tract infection, site not specified (3) COPD (chronic obstructive pulmonary disease) Status: Acute Qualifiers: COPD type: chronic bronchitis Chronic bronchitis type: mucopurulent Qualified Code(s): J41.1 - Mucopurulent chronic bronchitis Category: Medical Code(s): J44.9 - Chronic obstructive pulmonary disease, unspecified (4) Renal insufficiency Status: Acute Category: Medical Code(s): N28.9 - Disorder of kidney and ureter, unspecified (5) Hypothyroidism (acquired) Status: Acute Category: Medical Code(s): E03.9 - Hypothyroidism, unspecified (6) COVID-19 virus IgG antibody detected Status: Acute Category: Medical Code(s): Z01.84 - Encounter for antibody response examination (7) Hyperkalemia Status: Acute Category: Medical Code(s): E87.5 - Hyperkalemia (8) Amphetamine abuse Status: Acute Category: Medical Code(s): F15.10 - Other stimulant abuse, uncomplicated (9) COPD (chronic obstructive pulmonary disease) with acute bronchitis Status: Acute Category: Medical Code(s): J44.0 - Chronic obstructive pulmonary disease with (acute) lower respiratory infection; J20.9 - Acute bronchitis, unspecified (10) Severe sepsis with acute organ dysfunction Status: Acute Category: Medical Code(s): A41.9 - Sepsis, unspecified organism; R65.20 - Severe sepsis without septic shock - Assessment and plan all Dx Assessment and Plan for all problems:: rounded with dr dior all orders per aram try to wean vapertherm. advance diet
--- NOTE | 2020-05-13 11:21 | HMH.OTEV ---
OT Inpatient Evaluation Rehab OT IP Evaluation Start: 05/13/20 10:09 Freq: ONCE Status: Complete Protocol: Document 05/13/20 11:10 ESPINOZA (Rec: 05/13/20 11:20 [id number] Rehab OT IP Assessment Subjective History Pt is a 50 year old male who was admitted on 05/11/20 due to nausea, vomiting, and epigastric pain. Pt has a past medical history of asthma , COPD, asthma. Pt reports he lived at home alone prior to being hosptialized. Pt claims he was independent with ADL's and IADL's prior to becoming ill. Pt also reports he ambulated independently with a walker at home. Subjective I feel better today. Pt was resting in chair on arrival. Pt stood from chair with CGA. Pt then engaged in funtional mobility task of ~30 feet with cga. Pt sat down on toilet with cga. Pt stood from toilet with the assist of grab bars with cga. Pt returned back to chair with cga. Pt was independent with lower body dressing. Pt was left sitting in chair with call lindsey and all other needs in reach. Objective Patient Orientation Person,Place,Birthday Upper Extremity Gross ROM WFL Transfer Training Sit/Stand Transfer Assist Level Contact Guard/Hand Hold Chair Transfer Ability Contact Guard/Hand Hold Chair Transfer Technique Sit to/from Ambulatory Chair Transfer Assistive Devices Rolling Walker Lower Body Dressing Ability Standby Assistance Overall Commode/Toilet Transfer Ability Standby Assistance Commode/Toilet Transfer Technique Sit to/from Ambulatory Rehab OT IP prob,goals,plan Problems Date of Evaluation: 05/13/20 Rehab Potential Rehab Potential Innapropriate for Skilled Therapy Discharge Plan OT Discharge Plan Pt appears to be at baseline functionally. Pt is safe to return home once medically stable. Eval Complexity Eval Charge Codes 09562 - Low Complexity G Codes G -code Required
--- NOTE | 2020-05-13 11:22 | HMH.PTEV ---
Physical Therapy Evaluation Rehab PT IP Evaluation Start: 05/13/20 10:09 Freq: .once Status: Active Protocol: Document 05/13/20 11:20 JESSICA (Rec: 05/13/20 11:22 JESSICA [id number]) Subjective/History History History THis is the initial IP PT evalaution for Nic Gregorio. Pt is a 50 y/o male admitted to [facility] for UTI. Pt lives at [facility] and was I w/ ADL prior to admission Subjective Subjective No complaints from pt Rehab PT IP Eval Objective Appearance Patient Behavior Appropriate Patient Orientation Person,Place,Time Difficulty following instructions none Speech Pattern Appropriate Ambulation Patient Able to Ambulate Yes Ambulation Observation IP General Gait Pattern Observation Wide Based Gait,Ataxic Gait Ambulation Distance (feet) 50 Ambulation Assistive Device None Ambulation Ability Supervision/Stand by Balance Ability to Arise Able, uses arms to help Sitting Balance Steady, safe Standing Balance Steady, wide stance Dynamic Sitting Balance Ability Good Dynamic Standing Balance Ability Fair Transfers Chair Transfer Ability Supervision/Stand by Sit to Stand Chair Transfer Ability Supervision/Stand by Rehab PT IP prob,goals,plan Problems Date of Evaluation: 05/13/20 PT IP Problems Safety Rehab Potential Rehab Potential Innapropriate for Skilled Therapy Equipment Needs Assistive Devices Straight Cane,Rolling / Wheeled Walker Discharge Plan PT Discharge Plan Pt to ks home once medically stable - skilled IP therapy not needed at this time G -code Required Yes Eval Complexity Eval Charge Codes 10083 - Low Complexity G Codes PT Current Status Mobility PT Current Status Modifier CJ-At least 20% but less than 40% impaired, limited or restricted PT Goal Status Mobility PT Goal Status Modifer CJ-At least 20% but less than 40% impaired, limited or restricted PHYSICIAN CERTIFICATION: I certify the specified therapy services for Nic Gregorio are required, authorized, and reviewed every 30 days.
--- NOTE | 2020-05-13 16:54 | PC.NURSE ---
Pt has been pleasant and cooperative this shift. A&O X4. Pt has complained of pain X1 and received Tylenol per MAR with favorable results. Lung sounds reveal scattered expiratory wheezing. Pt is currently on room air with sats. >90%. No edema noted. Skin is C/D/I. Pt ambulates with stand-by assistance throughout the room and sat up in the recliner for several hours this shift. F/C is patent and draining clear, dark, danilo-colored urine at bedside to gravity. F/C tubing is free from kinks. No BM this shift. Appetite is excellent and pt eats the majority of all meals. 20 G peripheral IV in the RT forearm is patent and SL. VSS. Call light within reach. Will continue to monitor.
[2020-05-14 00:40] VITALS: PULSE 58; PULSE 71
[2020-05-14 03:57] VITALS: BP 122/69; PULSE 75; RESP 16; TEMP 36.6; O2SAT 96
--- NOTE | 2020-05-14 04:18 | PC.NURSE ---
patient has rested throughout shift. cbi running at slow rate, no clots noted in vaz bag, and urine output remains yellow in color. breath sounds clear to auscultation. pulses palpable +2 and regular. bowel sounds active x 4.
[2020-05-14 05:01] VITALS: BMI 21.7
[2020-05-14 06:20] VITALS: PULSE 63; PULSE 64; O2SAT 93
[2020-05-14 07:22] LABS: Basophils % 0.1 % (0.1-2.0); Eosinophils % 0.1 % (0.1-12.0); Hematocrit 40.1 % (42.0-52.0); Hemoglobin 12.5 g/dL (14.1-18.0); Lymphocytes # 0.5 K/mm3 (0.7-4.5); Lymphocytes % 3.9 % (10-50); Mean Corpuscular HGB Conc 31.2 g/dL (31.8-35.4); Mean Corpuscular Hemoglobin 30.2 pg (27.0-31.2); Mean Corpuscular Volume 96.7 fl (80-94); Mean Platelet Volume 7.3 fl (7.4-10.4); Monocytes # 0.4 K/mm3 (0.1-1.0); Monocytes % 2.9 % (1.7-9.3); Platelet Count 230 K/mm3 (142-424); Red Blood Count 4.15 M/mm3 (4.60-6.20); Red Cell Distribution Width 12.5 % (11.5-17.5); White Blood Count 12.9 K/mm3 (4.8-10.8)
[2020-05-14 07:23] LABS: MANUAL DIFFERENTIAL MANUAL DIFFERENTIAL (MANUAL DIFF)
[2020-05-14 07:33] LABS: Chloride 101 mmol/L (98-107)
[2020-05-14 07:34] LABS: Potassium 4.5 mmoL/L (3.5-5.1); Sodium 137 mmol/L (136-145)
[2020-05-14 07:37] LABS: Anion Gap 11.5 mEq/L (5-15); Blood Urea Nitrogen 30 mg/dl (9-20); Carbon Dioxide 29 mmol/L (22.0-30.0); Creatinine Clearance Estimated 80 mL/min (50-200); Estimated Glomerular Filt Rate 71 ml/min (>60); GFR (African American) 86 ML/MIN (>60); Glucose 132 mg/dl (74-100)
[2020-05-14 08:00] VITALS: BP 120/66; PULSE 82; RESP 20; TEMP 36.8; O2SAT 91
--- NOTE | 2020-05-14 09:40 | HMH.DCSUM ---
General - General Admission date:: 05/11/20 Discharge date: 05/14/20 HPI HPI: 50-year-old male that presents with nausea and vomiting and epigastric pain that started last pm. Pt states Vomitus described as yellow bilious and numbering approximately 10 x today. Patient states pain is sharp and rated at 7 out of 10. Patient states No diarrhea, fever, chills,hematemesis. No known sick contacts. Patient while in ed was placed on bipap. Patient admitted for UTI and resp distress. Hospital Course Hospital Course: 50-year-old male that presents with nausea and vomiting and epigastric pain that started last pm. Pt states Vomitus described as yellow bilious and numbering approximately 10 x today. Patient states pain is sharp and rated at 7 out of 10. Patient states No diarrhea, fever, chills,hematemesis. No known sick contacts. Patient while in ed was placed on bipap. Patient admitted for UTI and resp distress. UA was showing leukocyte esterase 1+, bacteria 3+, currently awaiting culture and sensitivity results. Blood cultures x2 - 05/11/20 CXR: IMPRESSION: Lungs clear with nothing definitely acute. Stable chest with no active disease Dictated by: Nabil, 05/11/20 Abd/Pelvis CT: IMPRESSION: 1..Diffuse circumferential wall thickening of urinary bladder Warrants correlation with urinalysis. Could reflect a cystitis along with bladder wall hypertrophy changes Mild enlarged prostate & mild asymmetric prominence of left seminal vesicle noted-Nonspecific 2..Small fat containing right inguinal hernia. Small fat containing umbilical hernia. Small sliding hiatal hernia 3.. Simple benign-appearing right renal cysts. No additional imaging required. Dictated by: Nabil, Patient sitting up in bed this morning respirations easy even no respiratory distress noted. He reports he feels better today than yesterday. Discussed discharged home, he is agreeable to this.. He was treated with Invanz IV while inpatient, he has no history of ESBL and we will discharge on Levaquin 750 mg daily x4 days to complete a full 7 days treatment he will follow-up with primary care physician in 1 to 2 weeks. Instructed to call the office for any concerns/needs 1. We will discharge home today 2. Levaquin 750 mg daily x4 days 3. Follow-up with PCP in 2 weeks Objective Vital signs: Temp Pulse Resp BP Pulse Ox 98.3 F 82 20 120/66 91 L 11/24/20 08:00 05/14/20 08:00 05/14/20 08:00 05/14/20 08:00 05/14/20 08:00 no acute distress - *Routine HEENT Exam Head: Present: normocephalic Eye: Present: EOMI ENT: Present: mucous membranes moist - *Routine Neck Exam Present: trachea midline. Absent: tracheal deviation - *Routine Respiratory Exam Present: rhonchi. Absent: accessory muscle use - *Routine Cardiovascular Exam Present: RRR - *Routine Abdominal Exam Present: soft, normoactive bowel sounds. Absent: tenderness, firm - *Routine Extremities Exam Present: full ROM, pulses intact. Absent: cyanosis, clubbing, calf tenderness - *Routine Skin Exam Present: intact, dry, warm. Absent: cyanosis, jaundice - *Routine Neurological Exam Present: alert, oriented X3. Absent: altered mental status - Routine Psychiatric Exam Present: normal affect, normal thought process, cooperative. Absent: visual hallucinations Results Labs on day of discharge: Labs from last 24 hours 05/14/20 05/14/20 06:47 06:47 WBC 12.9 H D RBC 4.15 L Hgb 12.5 L Hct 40.1 L MCV 96.7 H MCH 30.2 MCHC 31.2 L RDW 12.5 Plt Count 230 MPV 7.3 L Neut % (Auto) 93.0 H Lymph % (Auto) 3.9 L [place] % (Auto) 2.9 Eos % (Auto) 0.1 Baso % (Auto) 0.1 Neut # (Auto) 12.0 H Lymph # (Auto) 0.5 L [place] # (Auto) 0.4 Eos # (Auto) 0.0 Baso # (Auto) 0.0 Sodium 137 Potassium 4.5 D Chloride 101 Carbon Dioxide 29 Anion Gap 11.5 BUN 30 H Creatinine 1.10 Estimated
[2020-05-14 09:52] LABS: Lymphocytes % 8 % (10-50); Monocytes % 3 % (2-9); Neutrophils % 89 % (42-76); Platelet Estimate Normal; RBC Morphology Normal; Total Cells Counted 100
--- NOTE | 2020-05-14 10:32 | SW/DCPLANNER ---
I have spoke with this patient regarding discharge plans. Patient stated that he resides at the [facility] and does well at home alone. Patient stated that he does not have any needs at this time. Patient also stated that he would have transportation home later today once he is ready.
[2020-05-14 15:01] LABS: ABG HCO3 22.5 mmhg (22.0-26.0); ABG PCO2 43.7 mmhg (35.0-45.0); ABG PH 7.33 mmol/L (7.35-7.45); ABG PO2 67.6 mmhg (80-100); ABG TCO2 23.9 mmhg (23-27)
[2020-05-14 15:02] LABS: ABG Base Excess -3.4 mmol/L (-2.4-2.3); ABG Oxygen Saturation 93 % (90-100); Allen's Test ACCEPTABLE; Oxygen ROOM AIR %; Source L RADIAL; Tidal Volume BIPAP 16/7
== END 2020-05-14 11:19 | disposition home or self-care (01) | DRG 189 ==
LOC: ER 19:17 → 2ND 19:28
PROVIDERS: Nurse Practitioner Family; Admitting Provider Emergency Medicine; Emergency Provider Emergency Medicine; PCP Emergency Medicine; Visit Provider Emergency Medicine
DX: R65.20 Severe sepsis without septic shock (principal); J96.02 Acute respiratory failure with hypercapnia; N39.0 Urinary tract infection, site not specified; J44.0 Chronic obstructive pulmonary disease with (acute) lower respiratory infection; J44.1 Chronic obstructive pulmonary disease with (acute) exacerbation; E03.9 Hypothyroidism, unspecified; Z86.19 Personal history of other infectious and parasitic diseases; Z88.8 Allergy status to other drugs, medicaments and biological substances; Z79.51 Long term (current) use of inhaled steroids; J20.9 Acute bronchitis, unspecified
CPT/HCPCS: 36415; 71045; 74176; 80048; 80053; 80305; 81001; 82009; 82803; 83605; 83690; 84145; 85007; 85025; 86328; 87040; 87086; 87088; 87186; 93005; 94640; 94660; 94760; 96365; 96366; 96367; 96375; 97161; 97165; 99285; J1335; J2405

== ENCOUNTER → 2020-07-30 13:07 | Outpatient (CLI) | payer MEDICAID, SELFPAY ==
--- NOTE | 2020-07-30 13:07 | MR_ITS ---
PROCEDURE: MR CERVICAL SPINE WO CON CLINICAL INDICATION: neck pain TREMORS IN HEAD. BILATERAL NECK PAIN X3-4MONTHS. NO INJURY. NUMBNESS AND PAIN IN LT ARM IN MORNING. COMPARISON: [id number] CERVICAL SPINE-2 TO 3 VIEWS from 01/04/2016 TECHNIQUE: Standard multiplanar multiecho sequences are performed without contrast. 3-D MIP and myelographic images are also rendered and reviewed FINDINGS: There is prominence of the CSF space in the right CP angle region. This may be related to an arachnoid cyst. MRI of the brain without with contrast may confirm. C2-C3: 3 mm anterolisthesis of C2 with degenerative disc disease at that level with mild bilateral foraminal narrowing from uncovertebral hypertrophy. There is narrowing of the canal at 10 mm. No cord impingement. C3-C4: Degenerate disc disease with a small left paracentral disc osteophyte complex. This is causing impingement upon the anterior aspect of the cord on the left with mild flattening of the cord. C4-C5: 2 mm retrolisthesis of C4 with degenerative disc disease at that level with broad-based bulging disc/disc osteophyte complex slightly eccentric toward the left causing canal stenosis of 9 mm along with left lateral recess narrowing. There is impingement upon the cord with flattening of the cord anteriorly. The cord is slightly kinked at this level angulated posteriorly. There is severe left lateral recess narrowing and severe left-sided foraminal narrowing. C5-C6: Degenerate disc disease with endplate hypertrophic changes with bulging disc with a broad-based central disc osteophyte complex causing mild impingement upon the cord anteriorly and minimal cord flattening. C6-C7: Degenerative disc disease with bulging disc and a small left paracentral disc protrusion without cord impingement. C7-T1: Degenerative disc disease with 2 mm anterolisthesis of C7. IMPRESSION: Abnormal MRI of the cervical spine with multilevel cervical spondylosis with degenerative disc disease, bulging discs, disc osteophyte complex and endplate osteophytes causing canal stenosis with cord impingement along with lateral recess and foraminal narrowing. Please see above for detailed description at each level. Dictated by: Ed Fuentes MD 08/01/2020 12:40 Ed Fuentes MD in [place] 08/01/2020 12:40
== END ==
PROVIDERS: PCP Emergency Medicine; Visit Provider Emergency Medicine
DX: M54.2 Cervicalgia (principal)
CPT/HCPCS: 72141; 76376

== ENCOUNTER → 2020-08-15 14:38 | Outpatient (POV) | payer MEDICAID, SELFPAY ==
[2020-08-15 15:15] VITALS: BP 135/88; PULSE 68; RESP 18; TEMP 36.8; O2SAT 99; BMI 26.1
--- NOTE | 2020-08-15 15:51 | HMH.PMCON ---
Assessment and Plan (1) Degenerative joint disease of cervical spine Status: Chronic Category: Medical Code(s): M47.812 - Spondylosis without myelopathy or radiculopathy, cervical region (2) Cervical radiculopathy Status: Chronic Category: Medical Code(s): M54.12 - Radiculopathy, cervical region (3) Spinal stenosis in cervical region Status: Chronic Category: Medical Code(s): M48.02 - Spinal stenosis, cervical region - Assessment and plan all Dx Assessment and Plan for all problems:: Patient had discuss his MRI. We will seek neurosurgical consult as soon as possible for the patient. We will contact Dr. Edmonds's office. We will see him back after his consult with Dr. Edmonds to discuss a further plan of care. if the patient is not considered a neurosurgical candidate, we can perform injective therapy. He is in agreement with this plan of care. He has been instructed to contact clinic if he has any concerns before his next treatment. The patient and I specifically discussed risk factors for COVID19. These risks include, but are not limited to age greater than 60, heart or lung disease, diabetes, immunosuppression, and travel. We also discussed NSAIDs may worsen COVID19 infection or symptoms. Patient should not use NSAIDs to treat COVID19 signs or symptoms. Patient was also informed that any type of corticosteroid of any form (oral or injection) will decrease the patient's immune system response and may increase the likelihood of COVID19 infection [address] symptoms[address]. Cordon has reviewed this note and agrees with this plan of care. This note was dictated using voice recognition software and make contain errors or omissions. HPI - Data of Consult Patient: new to practice Consult date: 08/15/20 Requesting Physician: Lindsay Flanagan APRN Primary Care Provider: Dexter Ryan MD - Consult Narrative Reason for consult: Neck pain History of present illness: Mr. Gregorio is a 50 year old male who presents today for chronic neck pain. He says his pain has been ongoing for 5 to 6 years. He reports to be having numbness and tingling into his bilateral arms and hands. Patient says the pain is severe to the point that he is having difficulty moving his head. He is also having periods of dizziness feeling as though he is going to pass out. Patient also says he is having chronic headaches. This is progressively gotten worse to the point that he is concerned he is going to fall. Patient says he feels the pain is unbearable. He does have an MRI of his cervical spine without contrast. This was ordered per Dr. Ryan. Patient says that he has tried physical therapy for greater than 6 weeks with no relief. He was referred to our clinic for possible injective therapy. Per the MRI report, the patient does have impingement on the cord with flattening as well as a slight kink at the level of C4-C5. Severe narrowing is also noted at the C4-C5 area. He also has mild impingement at the C5-C6 area. Patient and I did discuss possible neurosurgical evaluation for flattening of the cord as well as the kinked level at C4-C5 area. He is in agreement that he would like a referral to neurosurgery. If the patient is not considered a candidate for surgical intervention, we would be more than happy to perform injective therapy for the patient. CC: Lindsay Flanagan APRN [facility] History I have reviewed the patient's past medical history: Yes Medical History: Reports:: Asthma, Chronic Obstructive Pulmonary Disease (COPD), Depression Denies:: Cancer, Diabetes Mellitus Type 1, Diabetes Mellitus Type 2, MRSA *Have you ever received a pneumonia vaccine?: Yes *Have you received a flu vaccine this season?: Yes Other Medical History: Reports: Arthritis, Cataracts, Hypothyroidism, Thyroid Disease Other Surgeries: Yes: Hernia Repair, Ureter Stent Amputation: No Fractures: No - *Social History Smoking Status: Current every day smoker Tobacco Typ
== END ==
PROVIDERS: PCP Emergency Medicine; Visit Provider Clinical Nurse Specialist Family Health
DX: M47.892 Other spondylosis, cervical region (principal); M54.12 Radiculopathy, cervical region; M48.02 Spinal stenosis, cervical region
CPT/HCPCS: 99202; G0463

== ENCOUNTER → 2020-08-27 15:26 | Outpatient (CLI) | payer MEDICAID, SELFPAY ==
[2020-08-27 17:06] LABS: Thyroid Stimulating Hormone 0.32 uIU/mL (0.465-4.68)
[2020-08-27 17:50] LABS: Vitamin B12 497 pg/mL (239-931)
[2020-09-05 01:14] LABS: IgG P18 Ab. Absent (.); IgG P23 Ab. Absent (.); IgG P28 Ab. Absent (.); IgG P30 Ab. Absent (.); IgG P39 Ab. Absent (.); IgG P41 Ab. Present (.); IgG P45 Ab. Absent (.); IgG P58 Ab. Absent (.); IgG P66 Ab. Absent (.); IgG P93 Ab. Absent (.); IgM P23 Ab. Absent (.); IgM P39 Ab. Absent (.); IgM P41 Ab. Present (.)
[2020-09-05 11:37] LABS: Lyme IgG WB Interp. Negative (.); Lyme IgM WB Interp. Negative (.)
== END ==
PROVIDERS: Visit Provider Specialist
DX: R25.1 Tremor, unspecified (principal); R29.2 Abnormal reflex
CPT/HCPCS: 36415; 82607; 82746; 84443; 86617; 86618

== ENCOUNTER → 2020-09-04 12:09 | Outpatient (CLI) | payer MEDICAID, SELFPAY ==
--- NOTE | 2020-09-04 12:13 | XR_ITS ---
PROCEDURE: XR WRIST RT MIN 3V CLINICAL INDICATION: right wrist pain/ CTS COMPARISON: No exams were available for comparison FINDINGS: No fracture or dislocation. No lytic or blastic change. There is normal mineralization. The joint spaces are well-preserved. No significant degenerative/arthritic changes. No erosive changes evident. Other findings:None. IMPRESSION: No acute findings. Dictated by: Ed Fuentes MD 09/04/2020 12:28 Ed Fuentes MD in [place] 09/04/2020 12:28
--- NOTE | 2020-09-04 12:13 | XR_ITS ---
PROCEDURE: XR WRIST LT MIN 3V CLINICAL INDICATION: left wrist pain/ CTS COMPARISON: No exams were available for comparison FINDINGS: No fracture or dislocation. No lytic or blastic change. There is normal mineralization. The joint spaces are well-preserved. No significant degenerative/arthritic changes. No erosive changes evident. Other findings:None. IMPRESSION: No acute findings. Dictated by: Ed Fuentes MD 09/04/2020 12:38 Ed Fuentes MD in [place] 09/04/2020 12:38
== END ==
PROVIDERS: PCP Emergency Medicine; Visit Provider Orthopaedic Surgery
DX: M25.532 Pain in left wrist (principal); M25.531 Pain in right wrist
CPT/HCPCS: 73110

== ENCOUNTER 2020-09-05 11:02 | Outpatient (RCR) | payer MEDICAID, SELFPAY | END 2020-09-05 12:00 | disposition home or self-care (01) | LOC: OT 11:02 | PROVIDERS: Visit Provider Orthopaedic Surgery | DX: G56.03 Carpal tunnel syndrome, bilateral upper limbs (principal) | CPT/HCPCS: 97763 ==

== ENCOUNTER → 2020-09-19 09:53 | Outpatient (CLI) | payer MEDICAID, SELFPAY ==
[2020-09-19 10:34] LABS: Basophils # 0.1 K/mm3 (0-0.2); Basophils % 0.6 % (0.1-2.0); Eosinophils # 0.3 K/mm3 (0.0-0.4); Eosinophils % 2.4 % (0.1-12.0); Hematocrit 45.5 % (42.0-52.0); Hemoglobin 14.9 g/dL (14.1-18.0); Lymphocytes # 3.1 K/mm3 (0.7-4.5); Lymphocytes % 25.7 % (10-50); Mean Corpuscular HGB Conc 32.7 g/dL (31.8-35.4); Mean Corpuscular Volume 88.8 fl (80-94); Mean Platelet Volume 7.2 fl (7.4-10.4); Monocytes # 0.6 K/mm3 (0.1-1.0); Neutrophils % 66.2 % (37.0-80.0); Platelet Count 276 K/mm3 (142-424); Red Blood Count 5.13 M/mm3 (4.60-6.20); Red Cell Distribution Width 14.9 % (11.5-17.5); White Blood Count 12.1 K/mm3 (4.8-10.8)
[2020-09-19 10:57] LABS: Chloride 105 mmol/L (98-107); Potassium 4.6 mmoL/L (3.5-5.1); Sodium 135 mmol/L (136-145)
[2020-09-19 10:59] LABS: Alanine Aminotransferase 33 U/L (12-78); Aspartate Amino Transferase 36 U/L (17-59); Bilirubin,Total 0.4 mg/dl (0.2-1.3); Blood Urea Nitrogen 28 mg/dl (9-20); Estimated Glomerular Filt Rate 79 ml/min (>60); GFR (African American) 96 ML/MIN (>60)
[2020-09-19 11:00] LABS: Albumin Level 4.4 g/dl (3.5-5.0); Albumin/Globulin Ratio 1.6 (1.1-1.8); Alkaline Phosphatase 77 U/L (38-126); Anion Gap 10.6 mEq/L (5-15); Calcium 9.3 mg/dl (8.4-10.2); Carbon Dioxide 24 mmol/L (22.0-30.0); Globulin 2.7 g/dL (1.3-3.2); Glucose 101 mg/dl (74-100); Total Protein,Serum 7.1 g/dl (6.3-8.2)
[2020-09-20 15:10] LABS: Immunoglobulin G, Qn 1160 mg/dL (603-1613)
[2020-09-21 14:51] LABS: Immunoglobulin A, Qn <5 mg/dL (90-386); Immunoglobulin M, Qn 133 mg/dL (20-172)
== END ==
PROVIDERS: Visit Provider Internal Medicine Medical Oncology
DX: D47.2 Monoclonal gammopathy (principal)
CPT/HCPCS: 36415; 80053; 82784; 83883; 84155; 84165; 85025; 86334

== ENCOUNTER 2023-05-04 06:30 | Day surgery (SDC) | payer MEDICAID, SELFPAY ==
[2023-05-04 06:53] VITALS: BP 156/103; PULSE 68; RESP 18; TEMP 36.3; O2SAT 100; BMI 23.7
[2023-05-04 07:50] VITALS: BP 153/85; PULSE 67; RESP 19; O2SAT 98
[2023-05-04 08:00] VITALS: BP 153/89; PULSE 68; RESP 19; O2SAT 98
[2023-05-04 08:11] VITALS: BP 144/88; PULSE 66; RESP 20; O2SAT 99
[2023-05-04 08:14] VITALS: BP 151/89; PULSE 65; RESP 17; TEMP 36.4; O2SAT 97
[2023-05-04 08:35] VITALS: BP 151/89; PULSE 65; RESP 17; TEMP 36.4; O2SAT 97
== END 2023-05-04 08:35 | disposition home or self-care (01) ==
PROVIDERS: PCP Emergency Medicine; Visit Provider Ophthalmology
PROC: (CPT 66984; principal; 2023-05-04 07:30)
DX: H25.812 Combined forms of age-related cataract, left eye (principal)
CPT/HCPCS: 66984; V2632

== ENCOUNTER 2023-05-18 06:33 | Day surgery (SDC) | payer MEDICAID, SELFPAY ==
[2023-05-12 14:03] VITALS: BMI 23.7
[2023-05-18] VITALS (7 sets, daily range): BP systolic 117–136; BP diastolic 74–85; PULSE 73–92; RESP 16–18; TEMP 36.4; O2SAT 98–99
== END 2023-05-18 08:27 | disposition home or self-care (01) ==
PROVIDERS: PCP Emergency Medicine; Visit Provider Ophthalmology
PROC: (CPT 66984; principal; 2023-05-18 07:30)
DX: H25.811 Combined forms of age-related cataract, right eye (principal)
CPT/HCPCS: 66984; V2632